=== PATIENT | male | born 1980 | race Caucasian/White ===

== ENCOUNTER 2017-09-16 09:08 | Emergency (ER) | payer OTHER ==
[2017-09-16 11:09] LABS: PLATELET COUNT 254 10^3/uL (150-400)
[2017-09-16] MEDS ORDERED: ACETAMINOPHEN 500 MG TAB PO ONE (11:22)
--- NOTE | 2017-09-16 13:54 | EDPHY ---
H & P Smoking Status: Former smoker Time Seen by Provider: 09/16/17 09:53 HPI/ROS: CHIEF COMPLAINT: Headache HISTORY OF PRESENT ILLNESS: 37-year-old male presents to the emergency department with some slight head pressure. 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 He was newly diagnosed about 1 month ago. He is still being worked up by his primary care provider. He has not followed up with a toys and games hand finisher. He denies any reported trauma or injury. He describes some mild pressure to the frontal aspect of his forehead. Denies visual changes. Denies neck or back pain. Denies chest pain or difficulty breathing. No nausea or vomiting. REVIEW OF SYSTEMS: Constitutional: No fever, no chills. Eyes: No double or blurry vision. ENT: No sore throat. Respiratory: No cough, no shortness of breath. Cardiac: No chest pain. Gastrointestinal: No abdominal pain, vomiting or diarrhea. Genitourinary: No dysuria. Musculoskeletal: No neck or back pain. Skin: No rashes. Neurological: headache. (Lola Zepeda) Past Medical/Surgical History: Possible polycythemia vera (Lola Zepeda) Social History: Single (Lola Zepeda) Physical Exam: General Appearance: Alert, no distress. Eyes: Pupils equal and round. Extraocular motions are all intact. ENT: Mouth: Mucous membranes moist. Respiratory: No wheezing, rhonchi, or rales, lungs are clear to auscultation. Cardiovascular: Regular rate and rhythm. Gastrointestinal: Abdomen is soft and nontender, no masses, no rebound or guarding, bowel sounds normal. Neurological: Alert and oriented x 3, cranial nerves II through XII grossly intact Skin: Warm and dry, no rashes. Musculoskeletal: Nontender to palpate along the cervical, thoracic or lumbar spine. Neck is supple. Extremities: Full range of motion and no peripheral edema. Psychiatric: Patient is oriented X 3, there is no agitation. (Lola Zepeda) Constitutional: Initial Vital Signs Temperature (C) 36.7 C 09/16/17 09:17 Heart Rate 90 09/16/17 09:17 Respiratory Rate 17 18 09:17 Blood Pressure 164/95 H 09/16/17 09:17 O2 Sat (%) 95 09/16/17 09:17 O2 Delivery Mode Room Air Allergies/Adverse Reactions: No Known Allergies Allergy (Unverified 09/16/17 09:16) Home Medications: Medication Instructions Recorded Aspirin 325 mg (*) 09/16/17 Flonase Allergy Relief 09/16/17 Medical Decision Making - Diagnostics Imaging: Discussed imaging studies w/ foundation director Radiologist ED Course/Re-evaluation: 37-year-old male presents to the emergency department with concerns about headache. His hemoglobin was 20.1 which was what it was a few weeks ago. His hematocrit is 54.1%. His MCV is normal. I spoke with the on-call toys and games hand finisher , Dr. Christelle De Dios, she did not feel that any intervention was necessary. She recommended that he could be discharged and will follow up with the toys and games hand finisher. The patient was comfortable with this plan. She did recommend daily baby aspirin. Patient verbalized understanding and agreed. The case was discussed with Dr. Eduardo Umana, secondary supervising physician, who did not directly evaluate the patient but agrees with treatment and plan. ( Lola Zepeda) I did not see this patient while he was in the emergency department. However his care was discussed with the PA while the patient was in the department. I agree with treatment plan and management (Eduardo Umana) Differential Diagnosis: Headache including but not limited to subarachnoid hemorrhage, migraine headache , tension headache and infectious causes such as meningitis, pharyngitis and sinusitis. (Lola Zepeda) - Data Points Laboratory Results: Laboratory Results 09/16/17 10:20 09/16/17 10:20 09/16/17 10:20 Erythropoietin 8.9 mIU/mL mIU/mL (2.6 - 18.5) Medications Given: Discontinued Medications Acetaminophen (Tylenol) 1,000 mg PO EDNOW ONE Stop: 09/16/17 11:23 Last Admin: 09/16/17 11:25 Dose: 1,000 mg Departure - Departure Disposition: Home, Routine, Self-Care Clinical Impression: Headache Condition: Good Instructions: Acute Headache (ED) Additional Instructions: Call [phone] to schedule appointment with [facility]. You should be taking a baby aspirin daily, 81 mg. Referrals: Christelle De Dios MD [Medical Doctor] - As per Instructions (Hematology-Oncology provider we spoke with while you are in the emergency department.)
[2017-09-16 14:01] VITALS: RESP 18
[2017-09-16 14:04] VITALS: BP 169/102; PULSE 77; TEMP 98.6; O2SAT 96
== END 2017-09-16 14:01 | disposition home or self-care (01) ==
DX: R51 Headache (principal); Z79.82 Long term (current) use of aspirin; Z87.891 Personal history of nicotine dependence
CPT/HCPCS: 82668-90

== ENCOUNTER 2018-12-23 22:27 | Emergency (ER) | payer OTHER ==
[2018-12-23 22:32] VITALS: BP 154/81
[2018-12-23] MEDS ORDERED: DEXAMETHASONE 4 MG TAB PO ONE (22:57)
--- NOTE | 2018-12-23 23:01 | EDPHY ---
H & P Stated Complaint: L ear ringing x24 hours Time Seen by Provider: 12/23/18 22:40 HPI/ROS: HPI The patient presents with ringing in his left ear. The patient awoke 2 mornings ago and noticed ringing of his ear which was constant. He awoke this morning and improved somewhat, though returned. He says he years both a high and low-pitched ringing from his ear. He feels pressure of his ear. These symptoms heel identical to about 1.5 years ago when he had some sort of viral infection of his left ear. He denies any recent URI type symptoms. He has not been exposed to any loud noises. He was treated with steroids with complete improvement in his symptoms and is asking for a prescription for steroids again. REVIEW OF SYSTEMS 10 systems were reviewed and negative with the exception of the elements mentioned in the history of present illness. PMHx: Polycythemia vera, hypertension Soc Hx: Housed PHYSICAL General Appearance: Alert, no distress Eyes: Pupils equal and round no pallor or injection ENT, Mouth: TMs clear bilaterally, no tragal tenderness, no mastoid tenderness , hearing in both ears appears to be symmetric to finger rubbing, Mucous membranes moist Respiratory: Breathing comfortably Neurological: A&O, moves all extremities Skin: Warm and dry, no rashes Musculoskeletal: Neck is supple non tender Extremities: symmetrical, full range of motion Psychiatric: Patient is oriented X 3, there is no agitation Source: Patient Exam Limitations: No limitations - Personal History Current Tetanus/Diphtheria Vaccine: Yes - Medical/Surgical History Hx Asthma: No Hx Chronic Respiratory Disease: No Hx Diabetes: No Hx Cardiac Disease: No Hx Renal Disease: No Hx Cirrhosis: No Hx Alcoholism: No Hx HIV/AIDS: No Hx Splenectomy or Spleen Trauma: No Other PMH: polycythemia, HTN, - Social History Smoking Status: Former smoker Constitutional: Initial Vital Signs Temperature (C) 36.6 C 12/23/18 22:29 Heart Rate 88 12/23/18 22:29 Respiratory Rate 16 12/23/18 22:29 Blood Pressure 154/81 H 12/23/18 22:29 O2 Sat (%) 95 12/23/18 22:29 O2 Delivery Mode Room Air Allergies/Adverse Reactions: No Known Allergies Allergy (Unverified 09/16/17 09:16) Home Medications: Medication Instructions Recorded Aspirin 325 mg (*) 09/16/17 Dexamethasone [Decadron 4 MG (*)] 4 mg PO Q6H 4 Days tab 12/23/18 Losartan Potassium 12/23/18 Medical Decision Making Differential Diagnosis: 38-year-old male with prior left-sided tinnitus due to viral infection, improved with steroids 1.5 years ago, now presents with left-sided tinnitus for the last 2 days, not provoked by loud noise. He has not been ill recently. He denies any ear pain. His ear exam is fairly unremarkable. Given that he has improved with steroids in the past, I will provide him with a prescription for Decadron tonight, however I have asked that he follow up with ENT in the next few days. He is happy with this plan. Differential diagnosis includes acute otitis media, otitis externa, tinnitus. Departure - Departure Disposition: Home, Routine, Self-Care Clinical Impression: Tinnitus of left ear Condition: Good Instructions: Tinnitus (ED) Additional Instructions: Please follow-up with your ENT in the next 1-2 days for further care. Return to the emergency department if your worse in any way. Referrals: Dave Forrester MD [Primary Care Provider] - As per Instructions Maria Elena Lyle PA [Physician Circle Saw Operator] - As per Instructions Prescriptions: Dexamethasone [Decadron 4 MG (*)] 4 mg PO Q6H 4 Days tab
== END 2018-12-23 23:18 | disposition home or self-care (01) ==
DX: H93.12 Tinnitus, left ear (principal); I10 Essential (primary) hypertension; D45 Polycythemia vera; Z87.891 Personal history of nicotine dependence